=== PATIENT | female | born 2000 | race Caucasian/White ===

== ENCOUNTER 2020-01-01 10:36 | Emergency (ER) | payer OTHER ==
[2020-01-01 10:52] VITALS: BP 147/89; PULSE 108; TEMP 98.3; BMI 28.0
[2020-01-01] MEDS ORDERED: SODIUM CHLORIDE 1,000 ML IV STA (11:26)
[2020-01-01] MEDS ORDERED: ONDANSETRON 4 MG/2 ML VIAL IVPUSH ONE (11:26)
[2020-01-01 12:37] LABS: BASO % 0.4 % (0-2.0); HEMATOCRIT 48.9 % (32.4-45.2); LYMPH % 9.7 % (8-40); MCH 30.2 pg (25.7-33.7); MCHC 34.8 g/dl (32.0-36.0); MEAN CELL VOLUME 86.8 fl (80-96); MEAN PLT VOLUME 10.9 fl (7.5-11.1); MONO % 11.3 % (3.8-10.2); NEUT % 78.6 % (42.8-82.8); PLATELET COUNT 253 K/MM3 (134-434); RBC 5.64 M/mm3 (3.60-5.2); WHITE BLOOD COUNT 15.3 K/mm3 (4.0-10.0)
[2020-01-01 12:41] LABS: EPI CELLS >36 /uL (0-25.1); HYALINE CASTS 8 /uL (0-3.1); URINE APPEARANCE CLOUDY; URINE BACTERIA 1455 /uL (0-1359); URINE BILIRUBIN NEGATIVE (NEGATIVE); URINE COLOR YELLOW; URINE GLUCOSE (UA) NEGATIVE (NEGATIVE); URINE KETONE 3+ (NEGATIVE); URINE LEUK ESTERASE NEGATIVE (NEGATIVE); URINE NITRITE NEGATIVE (NEGATIVE); URINE PROTEIN 3+ (NEGATIVE); URINE RBC 20 /uL (0-23.9)
[2020-01-01 12:57] LABS: ALBUMIN 5.5 g/dl (3.4-5.0); BILIRUBIN,TOTAL 1.2 mg/dL (0.2-1); BLOOD UREA NITROGEN 7.8 mg/dL (7-18); CALCIUM 10.4 mg/dL (8.5-10.1); CREATININE 0.8 mg/dL (0.55-1.3); POTASSIUM 3.5 mmol/L (3.5-5.1)
[2020-01-01] MEDS ORDERED: MAG HYDROX/AL HYDROX/SIMETH 30 ML UNIT-DOSE CUP PO ONE (13:02)
[2020-01-01] MEDS ORDERED: SODIUM CHLORIDE 0.9% 500 ML INFUS.BAG IV ONE (13:02)
[2020-01-01] MEDS ORDERED: MAG HYDROX/AL HYDROX/SIMETH 30 ML UNIT-DOSE CUP ONE (13:41)
== END 2020-01-01 14:52 | disposition home or self-care (01) ==
LOC: JER 10:36
PROC: 3E033GC Introduction of Other Therapeutic Substance into Peripheral Vein, Percutaneous Approach (ICD-10-PCS; principal; 2020-01-01)
PROC: 3E0337Z Introduction of Electrolytic and Water Balance Substance into Peripheral Vein, Percutaneous Approach (ICD-10-PCS; principal; 2020-01-01)
DX: K52.9 Noninfective gastroenteritis and colitis, unspecified (principal); K21.9 Gastro-esophageal reflux disease without esophagitis
CPT/HCPCS: 36415; 80053; 81003; 83690; 85025; 99284-25